=== PATIENT | female | born 1990 | race African-American/Black ===

== ENCOUNTER 2022-08-06 09:52 | Emergency (ER) | payer MEDICAID ==
[~2022-08-06] VITALS: Ht 170.2 cm; Wt 87.0 kg
[~2022-08-06 09:52] MED LIST: TOPUD MT
[2022-08-06 09:55] VITALS: BP 128/77
[2022-08-06] MEDS ORDERED: IBUPROFEN 800MG TABLET PO ONE (10:00)
[2022-08-06] MEDS ORDERED: LORAZEPAM 1MG TABLET PO ONE (10:00)
[2022-08-06 10:31] LABS: BASOPHILS % 0.5 % (0.0-2.0); HEMATOCRIT. 40.2 % (36.0-48.0); HEMOGLOBIN. 13.3 g/dL (12.0-16.0); LYMPHOCYTES % 15.7 % (20.0-50.0); MEAN CORPUSCULAR HEMOGLOBIN 26.3 pg (28.0-32.0); MEAN CORPUSCULAR VOLUME 79.1 fL (81.0-99.0); MEAN PLATELET VOLUME 7.8 fl (7.4-10.4); MONOCYTES % 5.4 % (2.0-8.0); NEUTROPHILS % 78.4 % (40.0-76.0); PLATELET 242 x1000/uL (130-400); RED BLOOD CELL COUNT 5.08 mill/uL (4.2-5.4); RED CELL DISTRIBUTION WIDTH 14.2 % (11.6-14.6)
[2022-08-06 10:37] LABS: CHLORIDE 107 mEq/L (98-107)
[2022-08-06 10:44] LABS: ETHANOL BLOOD < 10 mg/dL
[2022-08-06] MEDS ORDERED: IBUP-2029 MT (11:19)
== END 2022-08-06 11:38 | disposition home or self-care (01) ==
LOC: ER 09:52
DX: S00.83XA Contusion of other part of head, initial encounter (principal); M79.661 Pain in right lower leg; Y04.0XXA Assault by unarmed brawl or fight, initial encounter; Y93.89 Activity, other specified; Y92.89 Other specified places as the place of occurrence of the external cause
CPT/HCPCS: 36415; 80048; 80307; 80320; 85025; 99283; G0480

== ENCOUNTER 2022-10-03 20:06 | Emergency (ER) | payer MEDICAID ==
[~2022-10-03] VITALS: Ht 175.3 cm; Wt 93.0 kg
[~2022-10-03 20:06] MED LIST changes: +IBUP-2029 MT
[2022-10-03 23:11] LABS: CHLORIDE 107 mEq/L (98-107)
[2022-10-03 23:21] LABS: B-HCG QUANTITATIVE 628 mIU/mL (<3); BASOPHILS % 0.5 % (0.0-2.0); EOSINOPHILS % 0.3 % (0.0-5.0); HEMATOCRIT. 33.4 % (36.0-48.0); HEMOGLOBIN. 11.3 g/dL (12.0-16.0); LYMPHOCYTES % 15.5 % (20.0-50.0); MEAN CORPUSCULAR HEMOGLOBIN 26.4 pg (28.0-32.0); MEAN CORPUSCULAR VOLUME 77.9 fL (81.0-99.0); MEAN PLATELET VOLUME 8.3 fl (7.4-10.4); MONOCYTES % 6.8 % (2.0-8.0); NEUTROPHILS % 76.9 % (40.0-76.0); PLATELET 237 x1000/uL (130-400); RED BLOOD CELL COUNT 4.29 mill/uL (4.2-5.4)
[2022-10-04] MEDS ORDERED: HYDROCODONE/ACETAMINOPHEN 5/325MG TABLET PO ONE (01:00)
[2022-10-04] MEDS ORDERED: CEPH500T MT ×2 (01:55→02:00)
[2022-10-04] MEDS ORDERED: T3 PO (02:00)
[2022-10-04 03:00] VITALS: BP 106/55
== END 2022-10-04 03:15 | disposition home or self-care (01) ==
LOC: ER 20:06
DX: N30.00 Acute cystitis without hematuria (principal)
CPT/HCPCS: 36415; 76830; 76856; 80053; 84702; 85025; 86850; 86900; 86901; 99285; Z7610

== ENCOUNTER → 2022-10-05 | Emergency (ER) | payer MEDICAID ==
[~2022-10-05] VITALS: Ht 172.7 cm; Wt 94.0 kg
[~2022-10-05] MED LIST changes: +CEPH500T MT; +T3 PO
[2022-10-05 19:06] VITALS: BP 107/74
== END | disposition left against medical advice (07) ==
LOC: ER 18:32
DX: R10.2 Pelvic and perineal pain (principal); Z53.21 Procedure and treatment not carried out due to patient leaving prior to being seen by health care provider
CPT/HCPCS: 99281

== ENCOUNTER 2022-10-08 09:26 | Emergency (ER) | payer MEDICAID ==
[~2022-10-08] VITALS: Ht 172.7 cm; Wt 93.6 kg
[2022-10-08 10:25] LABS: CLARITY URINE CLOUDY (CLEAR); COLOR URINE ORANGE (YELLOW); KETONES URINE TRACE (NEGATIVE); LEUKOCYTE ESTERASE URINE TRACE (NEGATIVE); NITRITE URINE NEGATIVE (NEGATIVE); OCCULT BLOOD URINE 3+ (NEGATIVE); PROTEIN URINE 1+ (NEGATIVE); SPECIFIC GRAVITY URINE 1.017 (1.005-1.030)
[2022-10-08 11:02] LABS: BASOPHILS % 0.9 % (0.0-2.0); HEMATOCRIT. 35.5 % (36.0-48.0); HEMOGLOBIN. 11.9 g/dL (12.0-16.0); MEAN CORPUSCULAR HEMOGLOBIN 26.4 pg (28.0-32.0); MEAN CORPUSCULAR VOLUME 78.9 fL (81.0-99.0); NEUTROPHILS % 58.1 % (40.0-76.0); PLATELET 218 x1000/uL (130-400); RED CELL DISTRIBUTION WIDTH 14.3 % (11.6-14.6)
[2022-10-08 11:10] LABS: CHLORIDE 107 mEq/L (98-107)
[2022-10-08 11:23] LABS: B-HCG QUANTITATIVE 339 mIU/mL (<3)
[2022-10-08 11:48] LABS: HCG SCREEN POSITIVE
[2022-10-08] MEDS ORDERED: IBUP-2029 MT (11:54)
[2022-10-08] MEDS ORDERED: ACETAMINOPHEN WITH CODEINE 300/30MG TABLET PO ONE (12:00)
[2022-10-08 12:10] VITALS: BP 144/79
== END 2022-10-08 12:12 | disposition home or self-care (01) ==
LOC: ER 09:26
DX: O03.9 Complete or unspecified spontaneous abortion without complication (principal)
CPT/HCPCS: 36415; 76801; 80053; 81003; 81025; 84702; 84703; 85025; 86850; 86900; 99284

== ENCOUNTER 2023-07-27 06:59 | Emergency (ER) | payer SELFPAY ==
[~2023-07-27] VITALS: Ht 170.2 cm; Wt 91.0 kg
[2023-07-27 07:09] VITALS: O2SAT 100
[2023-07-27 08:06] LABS: BASOPHILS % 0.3 % (0.0-2.0); DIFFERENTIAL COMMENT 0; EOSINOPHILS % 0.8 % (0.0-5.0); LYMPHOCYTES % 10.1 % (20.0-50.0); MEAN CORPUSCULAR HEMOGLOBIN 26.5 pg (28.0-32.0); MEAN CORPUSCULAR HGB CONC 34.4 g/dL (31.0-37.0); MEAN CORPUSCULAR VOLUME 77.1 fL (81.0-99.0); MEAN PLATELET VOLUME 7.9 fl (7.4-10.4); NEUTROPHILS % 82.8 % (40.0-76.0); PLATELET 262 x1000/uL (130-400); RED BLOOD CELL COUNT 4.54 mill/uL (4.2-5.4); WHITE BLOOD COUNT 7.4 x1000/uL (4.5-11.0)
[2023-07-27] MEDS: ACETAMINOPHEN 325MG TABLET PO ONE (08:11)
[2023-07-27 08:41] LABS: ALANINE AMINOTRANSFERASE 15 IU/L (10-49); ALBUMIN 3.9 g/dL (3.2-4.8); ASPARTATE AMINOTRANSFERASE 17 IU/L (<34); B-HCG QUANTITATIVE 12610 mIU/mL (<3); BILIRUBIN TOTAL 0.7 mg/dL (0.1-1.0); CALCIUM 9.1 mg/dL (8.7-10.4); CARBON DIOXIDE 22 mEq/L (21-32); CHLORIDE 105 mEq/L (98-107); CREATININE 0.5 mg/dL (0.6-1.0); GLUCOSE 97 mg/dL (70-105); POTASSIUM 3.6 mEq/L (3.5-5.1); PROTEIN TOTAL 6.8 g/dL (6.0-8.3); SODIUM 135 mEq/L (136-145)
[2023-07-27 08:42] LABS: UREA NITROGEN BLOOD < 5 mg/dL (9-23)
[2023-07-27 08:47] LABS: CLARITY URINE CLOUDY (CLEAR); COLOR URINE YELLOW (YELLOW); GLUCOSE URINE NEGATIVE (NEGATIVE); KETONES URINE 2+ (NEGATIVE); LEUKOCYTE ESTERASE URINE TRACE (NEGATIVE); NITRITE URINE NEGATIVE (NEGATIVE); OCCULT BLOOD URINE NEGATIVE (NEGATIVE); PH URINE 6.5 (4.5-8.0); PROTEIN URINE 2+ (NEGATIVE); SPECIFIC GRAVITY URINE 1.019 (1.005-1.030)
[2023-07-27] MEDS: SODIUM CHLORIDE 0.9% 1,000 ML IV ONE (08:59)
[2023-07-27 09:15] LABS: BACTERIA URINE 4+; SQUAMOUS EPITHELIAL CELL URINE 3+ /lpf (RARE/1+)
[2023-07-27 09:17] LABS: RBC URINE 0-2 /hpf (0-2); WBC URINE 0-2 /hpf (0-2)
[2023-07-27] MEDS: ONDANSETRON HCL 4MG/2ML INJ IV STA (09:28)
[2023-07-27] MEDS: MORPHINE SULFATE 4 MG/ML CPJ (NOT FOR IM USE) IV STA (09:28)
[2023-07-27 11:19] VITALS: BP 101/53; PULSE 75; RESP 18; TEMP 98.1
== END 2023-07-27 12:00 | disposition short-term general hospital (02) ==
LOC: ER 06:59
DX: O26.892 Other specified pregnancy related conditions, second trimester (principal); Z3A.22 22 weeks gestation of pregnancy
CPT/HCPCS: 80053; 81003; 84702; 85025; 86850; 86900; 86901; 36415; 76805; 96361; 96374; 96375; 99285; J2405; J2270; J7030; Z7610